=== PATIENT | male | born 1940 | race Caucasian/White ===

== ENCOUNTER 2024-12-13 07:50 | Inpatient (IN) | payer MEDICARE ==
[2024-12-13] MEDS ORDERED: NALOXONE 0.4 MG/ML 1 ML VIAL IV PRN (08:11)
[2024-12-13] MEDS: ASPIRIN 325 MG TAB PO STA (08:12)
[2024-12-13] MEDS: ATORVASTATIN 80 MG TAB PO STA (08:13)
[2024-12-13] MEDS: HEPARIN SODIUM 1,000 UN/ML (10ML VL) MISCELLANE ONE (08:14)
[2024-12-13] MEDS: SODIUM CHLORIDE 0.9% 1,000 ML IV ONE ×2 (08:15→08:26)
--- NOTE | 2024-12-13 08:15 | ED ---
General Adult HPI - General Chief complaint: Chest Pain Stated complaint: Chest pain Time Seen by Provider: 12/13/24 07:52 Source: patient, family, RN notes reviewed, old records reviewed Mode of arrival: ambulatory Limitations: no limitations - History of Present Illness Initial comments: 84-year-old male presenting with intermittent chest pain over the past 2 to 3 days. Pain is substernal, pressure sensation. No vomiting or diaphoresis. No prior history of CAD. Pain became more severe and consistent this morning just prior to arrival and radiated to bilateral upper extremities. - Related Data Allergies Allergy/AdvReac Type Severity Reaction Status Date / Time guaifenesin [From Mucinex] AdvReac Anaphylaxis Verified 12/13/24 08:00 Review of Systems ROS Statement: Those systems with pertinent positive or pertinent negative responses have been documented in the HPI. ROS Other: All systems not noted in ROS Statement are negative. Past Medical History Past Medical History: GERD/Reflux, Hypertension Additional Past Medical History / Comment(s): bladder cancer, kidney failure, Additional Past Surgical History / Comment(s): Urinary stoma, failed neobladder, Past Psychological History: No Psychological Hx Reported Smoking Status: Never smoker Past Alcohol Use History: None Reported Past Drug Use History: None Reported General Exam Limitations: no limitations General appearance: alert, in no apparent distress Head exam: Present: atraumatic, normocephalic Eye exam: Present: normal appearance, PERRL ENT exam: Present: normal exam Neck exam: Present: normal inspection. Absent: tenderness, meningismus Respiratory exam: Present: normal lung sounds bilaterally. Absent: respiratory distress, wheezes Cardiovascular Exam: Present: regular rate, normal rhythm GI/Abdominal exam: Present: soft. Absent: distended, tenderness Extremities exam: Present: normal inspection, normal capillary refill Neurological exam: Present: alert, oriented X3, CN II-XII intact. Absent: motor sensory deficit Psychiatric exam: Present: normal affect, normal mood Skin exam: Present: warm, dry, intact Course Vital Signs 12/13/24 12/13/24 12/13/24 07:54 08:12 08:18 Temperature 97.6 F Pulse Rate 85 94 96 Respiratory 18 18 18 Rate Blood Pressure 172/96 163/93 181/101 O2 Sat by Pulse 98 95 98 Oximetry Medical Decision Making - Medical Decision Making Was pt. sent in by a medical professional or institution (Dr., PA, DIVER ASSISTANT, urgent care, hospital, or snf...) When possible be specific @ -No Did you speak to anyone other than the patient for history (EMS, parent, family, police, friend...)? What history was obtained from this source @ -No Did you review nursing and triage notes (agree or disagree)? Why? @ -I reviewed and agree with nursing and triage notes Were old charts reviewed (outside hosp., previous admission, EMS record, old EKG, old radiological studies, urgent care reports/EKG's, snf records)? Report findings @ -No old charts were reviewed Differential Chest Pain: Stable Angina, Unstable Angina, STEMI, NSTEMI Aortic Dissection, Pneumothorax, Musculoskeletal, Esophageal Spasm GERD, Cholecystitis, Pancreatitis, Zoster, this is not meant to be an all-inclusive list. EKG interpreted by me (3pts min.). @ -Sinus rhythm rate of 84, NJ interval 194, QRS duration 103, QTc 417, ST segment elevation inferior leads with reciprocal changes in lead I and aVL consistent with acute NC X-rays interpreted by me (1pt min.). @ -Chest x-ray is negative for consolidated pneumonia or pneumothorax CT interpreted by me (1pt min.). @ -None done U/S interpreted by me (1pt. min.). @ -None done What testing was considered but not performed or refused? (CT, X-rays, U/S, labs)? Why? @ -None What meds were considered but not given or refused? Why? @ -None Did you discuss the management of the patient with other professionals (professionals i.e. DEBBIE Hernandez, DIVER ASSISTANT, lab, RT, psych nurse, social work supervisor, park ranger, teacher, chairman president and chief executive officer, case monitor)? Give summary @[facility], Dr. Sumner covering for cardiology Was smoking cessation discussed for >3mins.? @ -No Was critical care preformed (if so, how long)? @ -Yes, 35 minutes Were there social determinants of health that impacted care today? How? (Homelessness, low income, unemployed, alcoholism, drug addiction, transportation, low edu. Level, literacy, decrease access to med. care, prison, rehab)? @ -No Was there de-escalation of care discussed even if they declined (Discuss DNR or withdrawal of care, Hospice)? DNR status @ -No What co-morbidities impacted this encounter? (DM, HTN, Smoking, COPD, CAD, Cancer, CVA, ARF, Chemo, Hep., AIDS, mental health diagnosis, sleep apnea, morbid obesity)? @ -None Was patient admitted / discharged? Hospital course, mention meds given and route, prescriptions, significant lab abnormalities, going to OR and other pertinent info. @ -[84-year-old male presenting with central chest pain and pressure which has been present on and off since Friday but became more consistent and severe this morning with radiation to the bilateral upper extremities. No vomiting or diaphoresis. No prior history of CAD. EKG shows ST segment elevation with reciprocal change consistent with acute NC. Wallcovering Texturer is activated and the patient is taken urgently for heart catheterization. Admitted to [facility]. Laboratory testing is pending including CBC, CMP, troponin. Undiagnosed new problem with uncertain prognosis? @ -No Drug Therapy requiring intensive monitoring for toxicity (Heparin, Nitro, Insulin, Cardizem)? @ -No Were any procedures done? @ -No Diagnosis/symptom? @ -Inferior STEMI Acute, or Chronic, or Acute on Chronic? @Acute Uncomplicated (without systemic symptoms) or Complicated (systemic symptoms)? @Complicated Side effects of treatment? @ -No Exacerbation, Progression, or Severe Exacerbation? @ -No Poses a threat to life or bodily function? How? (Chest pain, USA, NC, pneumonia, PE, COPD, DKA, ARF, appy, cholecystitis, CVA, Diverticulitis, Homicidal, Suicidal, threat to staff... and all critical care pts) @ -Yes, ACS - Lab Data Result diagrams: 12/13/24 08:17 12/13/24 08:17 Critical Care Time Critical Care Time: Yes Total Critical Care Time: 35 Disposition Clinical Impression: ST elevation myocardial infarction (STEMI) Disposition: ADMITTED IP TO THIS HOSP Condition: Serious Is patient prescribed a controlled substance at d/c from ED?: No Time of Disposition: 08:14
[2024-12-13 08:26] LABS: Basophils % (A) 0 %; Eosinophils # (A) 0.3 k/uL (0-0.7); Eosinophils % (A) 3 %; HCT 33.5 % (39.0-53.0); HGB 11.2 gm/dL (13.0-17.5); Lymphocytes # (A) 0.9 k/uL (1.0-4.8); Lymphocytes % (A) 12 %; MCH 31.7 pg (25.0-35.0); MCHC 33.5 g/dL (31.0-37.0); MCV 94.7 fL (80.0-100.0); Mean Platelet Volume 7.7; Monocytes # (A) 0.4 k/uL (0-1.0); Monocytes % (A) 6 %; Neutrophils # (A) 5.8 k/uL (1.3-7.7); Neutrophils % (A) 78 %; Platelet Count 192 k/uL (150-450); RBC 3.54 m/uL (4.30-5.90); RDW 13.2 % (11.5-15.5); WBC 7.5 k/uL (3.8-10.6)
[2024-12-13] MEDS: SODIUM CHLORIDE 0.9% 500 ML 500 ML IV ONE (08:26)
--- NOTE | 2024-12-13 08:28 | XR ---
EXAMINATION TYPE: XR chest 1V portable DATE OF EXAM: 12/13/2024 CLINICAL INDICATION: Male, 84 years old with history of STEMI, progress study. TECHNIQUE: Single AP portable upright view of the chest is obtained. COMPARISON: None. FINDINGS: Low lung volumes and cardiomegaly are seen. Reticulonodular increased markings bilaterally . No pleural effusion or pneumothorax seen. Degenerative changes bilateral shoulders is present. Scol iotic curvature is seen. IMPRESSION: Cardiomegaly without acute focal infiltrate. Nonspecific reticulonodular increased markin gs bilaterally noted. Correlation with old outside chest x-rays would be beneficial. [facility], , 12/13/2024 8:26 AM
[2024-12-13] MEDS: fentaNYL (PF) 50 MCG/1 ML VIAL IVP ONE (08:34)
[2024-12-13 08:35] LABS: INR 0.9 (<1.2); Partial Thromboplastin Time 23.8 sec (22.0-30.0)
[2024-12-13] MEDS: LIDOCAINE 1% INJ 10MG/ML (20 ML MDV) SQ ONE (08:35)
[2024-12-13] MEDS: MIDAZOLAM 2 MG/2 ML VIAL IVP ONE (08:35)
[2024-12-13 08:39] LABS: ALT 14 U/L (4-49); AST 34 U/L (17-59); African American GFR (CKD) 9 (>60 ml/min/1.73 sqM); Alkaline Phosphatase 68 U/L (38-126); Anion Gap 16 mmol/L; Blood Urea Nitrogen 69 mg/dL (9-20); Calcium 8.1 mg/dL (8.4-10.2); Carbon Dioxide 18 mmol/L (22-30); Chloride 105 mmol/L (98-107); Glucose 150 mg/dL (74-99); Magnesium 1.8 mg/dL (1.6-2.3); Non-African American GFR(CKD) 8 (>60 ml/min/1.73 sqM); Sodium 139 mmol/L (137-145); Total Bilirubin 0.6 mg/dL (0.2-1.3); Total Protein 6.6 g/dL (6.3-8.2)
[2024-12-13] MEDS: HEPARIN SODIUM,PORCINE (1 ML) 2,500 UNIT in SODIUM CHLORIDE 0.9% 250 ML IRRIGATION ONE (08:41)
[2024-12-13] MEDS: HEPARIN SODIUM,PORCINE 10,000 UNIT in SODIUM CHLORIDE 0.9% 1,000 ML IRRIGATION ONE (08:41)
[2024-12-13 08:47] LABS: NT-Pro-B-Type Natriuretic Pept 14200 pg/mL
[2024-12-13] MEDS: TICAGRELOR 90 MG TAB PO ONE (08:50)
[2024-12-13] MEDS: HEPARIN SODIUM 1,000 UN/ML (10ML VL) IVP ONE (08:52)
[2024-12-13] MEDS: IOPAMIDOL-370 100ML BTL INJ ONE ×2 (09:05→09:47)
--- NOTE | 2024-12-13 09:05 | P.CRDCN ---
History of Present Illness Consult date: 12/13/24 History of present illness: HISTORY OF PRESENTING ILLNESS: Patient with past history of bladder cancer, CKD, presented to [facility] ER this morning because of substernal chest pain radiating bilateral arm along with associated shortness of breath which woke him up from sleep. He has been having on and off substernal chest pressure over the last 2 days. He has been taking [id number] Tylenol which has been helping his symptoms. Because his symptoms are not resolving with Tylenol and were more intense today he decided to come to the ER. On admission he was hemodynamically stable, saturating well on room air Admission ECG showed ST elevations in inferior lead. Patient denies any prior cardiovascular conditions and any prior stenting. He denies any prior history of stroke. REVIEW OF SYSTEMS: 14 point review of system is negative except what is mentioned above in HPI. PHYSICAL EXAMINATION: Neck: Brisk carotid upstroke, no jugular venous distention. Lungs: Clear to auscultation. Heart: Regular rate and rhythm, S1-S2, , no murmur or rub. Abdomen: Soft nontender, positive bowel sounds. Extremities: No edema, intact distal pulses. Neuro: Alert, oritented, no focal deficits. Detailed neuro exam was not performed. ASSESSMENT: # Inferior STEMI # CKD # Bladder cancer PLAN: Plan for emergent cardiac catheterizationroberth nunes Further recommendations to follow Jovon Sumner MD, FACC, RPVI Thank you for allowing [facility] to participate in this patient's care. Feel free to reach out in case of any followup questions. Past Medical History Past Medical History: GERD/Reflux, Hypertension Additional Past Medical History / Comment(s): bladder cancer, kidney failure, Additional Past Surgical History / Comment(s): Urinary stoma, failed neobladder, Past Psychological History: No Psychological Hx Reported Smoking Status: Never smoker Past Alcohol Use History: None Reported Past Drug Use History: None Reported Medications and Allergies Allergies Allergy/AdvReac Type Severity Reaction Status Date / Time guaifenesin [From Mucinex] AdvReac Anaphylaxis Verified 12/13/24 08:00 Physical Exam Vitals: Vital Signs Temp Pulse Resp BP Pulse Ox 12/13/24 08:18 90 18 186/98 100 12/13/24 08:12 86 18 186/98 99 12/13/24 07:54 97.6 F 85 18 172/96 98 Intake and Output 12/12/24 12/13/24 12/13/24 22:59 06:59 14:59 Other: Weight 90.718 kg Results 12/13/24 08:17 12/13/24 08:17 Cardiac Enzymes 12/13/24 12/13/24 Range/Units 08:17 08:17 AST 34 (17-59) U/L Troponin I 6.450 H* (0.000-0.034) ng/mL Coagulation 12/13/24 Range/Units 08:17 PT 10.0 (10.0-12.5) sec APTT 23.8 (22.0-30.0) sec CBC 12/13/24 Range/Units 08:17 WBC 7.5 (3.8-10.6) k/uL RBC 3.54 L (4.30-5.90) m/uL Hgb 11.2 L (13.0-17.5) gm/dL Hct 33.5 L (39.0-53.0) % Plt Count 192 (150-450) k/uL Comprehensive Metabolic Panel 12/13/24 Range/Units 08:17 Sodium 139 (137-145) mmol/L Potassium 4.0 (3.5-5.1) mmol/L Chloride 105 (98-107) mmol/L Carbon Dioxide 18 L (22-30) mmol/L BUN 69 H (9-20) mg/dL Creatinine 6.16 H (0.66-1.25) mg/dL Glucose 150 H (74-99) mg/dL Calcium 8.1 L (8.4-10.2) mg/dL AST 34 (17-59) U/L ALT 14 (4-49) U/L Alkaline Phosphatase 68 (38-126) U/L Total Protein 6.6 (6.3-8.2) g/dL Albumin 4.0 (3.5-5.0) g/dL Current Medications Generic Name Dose Route Start Last Admin Trade Name Freq PRN Reason Stop Dose Admin Naloxone HCl 0.2 mg 12/13/24 08:11 Naloxone 0.4 Mg/Ml 1 Ml Vial IV Q2M PRN Opioid Reversal Intake and Output 12/12/24 12/13/24 12/13/24 22:59 06:59 14:59 Other: Weight 90.718 kg Patient Weight 12/14/24 06:59 Weight 90.718 kg 12/13/24 08:17 12/13/24 08:17
--- NOTE | 2024-12-13 09:12 | P.CARDCATH ---
Date of Procedure: 12/13/24 Description of Procedure: DIAGNOSTIC CORONARY ANGIOGRAPHY and LEFT HEART CATH REPORT PROCEDURES PERFORMED: Left heart catheterization Selective coronary angiography Moderate conscious sedation 14 mins Right radial access INDICATION: Inferior STEMI BRIEF HPI: Patient without any prior cardiovascular history prior history of bladder cancer with neobladder and CKD presented to the ER with substernal chest pressure on admission he was noted to have ST elevations in inferior lead for which he was taken to Teletypewriter Installer. CONSENT: I have explained the procedural steps of above-mentioned procedures in layman's terms to the patient. I discussed the risks (including but not limited to stroke, emergent vascular or cardiac surgery or ), benefits and alternative therapies for the above-mentioned procedure. I discussed the risks of sedation/analgesia and blood product administration (if indicated). The patient has indicated understanding and acceptance of these risks. Conscious Sedation: Patient's ECG, heart rate, blood pressure, pulse oximetry were monitored throughout the duration of procedure under my direct supervision. 1 mg Versed and 50 mcg Fentanyl were used for induction of moderate conscious sedation. Total duration of moderate concious sedation 14 minutes. PROCEDURAL DETAILS: Patient was prepped and draped in sterile fashion. 1% lidocaine was infiltrated over the right radial artery. Right radial access was obtained via modified seldinger technique. . Medications: 5mg of verapamil was administed in the radial sheet. 4000 Units of Heparin was administed in the ER Wires and Catheter used: J wire was advanced under fluroscopy to get to aortic root. 5 slovenian JR 4 diagnostic catheter was utilized obtain left ventricular pressure and pressure gradint across aortic valve. 5 slovenian JR 4 diagnostic catheter was used to selectively engage the right coronary ostium. 5 slovenian JL 3.5 diagnostic catheter was utilized to selectively engage the left coronary ostium. Angiographic images were reviewed in detail. Catheter and wire were removed. Radial sheet was flushed. Decision was to proceed with PCI of RCA with Dr. Combs. Further recommendations to follow TECHNICAL DETAILS Total radiation: 168 mGy Total fluro time: 3.4 minutes Total contrast used: Isovue 50 ml Complications: [none] Estimated Blood loss: less than 15 ml HEMODYNAMICS: LVEDP 22 mmHg. There was no significant gradient across the aortic valve. SELECTIVE CORONARY ARTERIOGRAPHY: LEFT MAIN: The left main is short and large caliber vessel. It bifurcates into the LAD and circumflex. Left main appears angiographically normal. LEFT ANTERIOR DESCENDING CORONARY ARTERY: Distal part of proximal LAD has 70-80% disease. Mid LAD has diffuse 30 to 40% disease. Distal LAD appears angiographically patent. Mid LAD gives rise to a medium size diagonal branch which bifurcates in the proximal segment. Diagonal branch appears angiographically patent. LEFT CIRCUMFLEX CORONARY ARTERY: It is nondominant vessel. LCx is large caliber. Proximal LCx is patent. It gives rise to a large OM1 branch which appears angiographically patent. After giving OM1 branch, mid LCx is angiographically patent and gives rise to a small OM 2 branch. After OM 2 branch, mid LCx continues to become a large caliber OM 3 branch which appears angiographically patent. RIGHT CORONARY ARTERY: Dominant vessel. Distal part of proximal RCA has a 80% eccentric stenosis. Mid RCA has 50 to 60% diffuse disease. Distal portion of mid RCA has 70% stenosis. At the junction of mid and distal RCA, the vessel is 100% occluded with RAKAN 0 flow. There are [id number] collaterals filling medium caliber PDA and PL branches. IMPRESSION: 100% distal mid RCA occlusion with RAKAN 0 flow 80% proximal RCA stenosis 70-80% proximal LAD stenosis Elevated LVEDP PLAN: Plan for emergent PCI of RCA Staged PCI of LAD After the heart cath was performed patient's labs came back which showed a creatinine of 6. Patient does report history of CKD from bladder cancer in the past. Patient will need nephrology consult and multidisciplinary approach for proximal LAD stenosis intervention. Performing Physician Jovon Sumner MD, FACC, RPVI Thank you for allowing [facility] to participate in this patient's care. Feel free to reach out in case of any followup questions.
[2024-12-13] MEDS ORDERED: MAG HYDROX/AL HYDROX/SIMETH 30 ML CUP PO PRN (10:00)
[2024-12-13] MEDS ORDERED: RX INFO: IV CONTRAST WAS GIVEN 1 EACH MISC MISCELLANE PRN (10:00)
[2024-12-13] MEDS ORDERED: NITROGLYCERIN SL TABS 0.4 MG TAB SUBLINGUAL PRN (10:00)
[2024-12-13] MEDS ORDERED: ZOLPIDEM 5 MG TAB PO PRN (10:00)
[2024-12-13] MEDS ORDERED: ATROPINE SULFATE 0.1 MG/ML 10ML SYRINGE IV PRN (10:00)
--- NOTE | 2024-12-13 10:08 | P.CARDCATH ---
Date of Procedure: 12/13/24 Description of Procedure: PERCUTANEOUS TRANSLUMINAL CORONARY ANGIOPLASTY CLINICAL INFORMATION: The patient is an 84-year-old male who presented with symptoms of recurrent chest pain for the last 4 days, worse today, on presentation he was found to have evidence of acute inferior wall myocardial infarction. He underwent cardiac catheterization by Dr. Sumner and was found to have acutely occluded distal RCA with significant disease in the proximal LAD. During the procedure his lab data came back and was consistent with stage IV chronic kidney disease. Recommendations were made regarding angioplasty and stenting. The procedure as well as the risks and the complications were discussed with the patient who was in full understanding and agreement. PROCEDURE: A 6 Congolese AL 0.75 guiding catheter was introduced into the system. After cannulating the RCA, a 0.014 BMW J-wire was advanced across the lesion and positioned distally with the help of a fine cross microcatheter. Following that a 2.5 x 12 mm trek balloon was advanced and inflated at 8 atmosphere. After removing the balloon a RidePost eye IVUS catheter was introduced and images were obtained that revealed a lumen of 5 to 5.3 mm in diameter with mild calcification. Following that a 4.0 x 38 mm Xience delicia point stent was deploy ed. It was dilated at 16 michael. After removing the balloon repeat IVUS imaging was obtained and subsequently a 5.0 x 15 mm NC trek balloon was advanced and inflation in the stented segment were done at 10 michael. After removing the balloon a 5.0 x 23 mm Xience delicia point stent was deployed proximally at 16 michael. Repeat IVUS imaging was obtained and revealed good opening of the stent but imaging showed small irregularity proximal to the stent and a 5.0 x 12 mm Xience delicia point stent was deployed proximal to the first 1 at 16 michael. Repeat IVUS imaging was performed and subsequently a 5.0 x 15 mm NC trek balloon was advanced and inflations in the proximal 2 stents were performed at 10 michael. After the last inflation, after appropriate wait, the balloon and the guidewire were withdrawn back into the guiding catheter. Images were obtained and repeated. Those images reveal stable successful stenting. At that point, the guiding catheter, the balloon, and guidewire were removed. Of note that a guide liner was used to help advance the stent into the distal segment. The sheath was removed. Hemostasis was obtained with deployment of a TR band. There were no immediate complications. The patient was returned to the room in stable condition. Of note, the patient received 8000 units of heparin as well as Brilinta. His ACT was followed. There was no immediate complications. At the end of the procedure his chest pain and EKG changes resolved. RESULTS: Successful stenting of the distal RCA with reduction of stenosis from 100% to less than 5% with stenting of the proximal RCA with reduction of stenosis from 80% to less than 5% with IVUS imaging and RAKAN-3 flow. RECOMMENDATIONS: The patient will continue on aspirin and Brilinta without any interruption for 12 months, close follow-up of his renal function will be done. Depending on his renal status and overall symptoms the decision will be made regarding the need to revascularize his proximal LAD. Aggressive coronary risks modifications, maintaining LDL below 70 mg/dL will be continued. The findings and recommendations were discussed with the patient and the family, they are in full understanding and agreement. Duration of sedation: 60 minutes
[2024-12-13 10:13] LABS: Glucose,Whole Blood 131 mg/dL (70-110)
[2024-12-13] MEDS: hydrALAZINE HCL 25 MG TAB PO SCH (10:48)
[2024-12-13] MEDS: METOPROLOL TARTRATE 25 MG TAB PO SCH (10:48)
[2024-12-13] MEDS: SODIUM CHLORIDE 0.9% 1,000 ML in EMPTY BAG 1 BAG IV SCH (10:49)
--- NOTE | 2024-12-13 13:04 | P.NPCON ---
History of Present Illness - Reason for Consult chronic renal failure - History of Present Illness Patient is an 84-year-old male with history of chronic kidney disease stage V mostly obstructive uropathy who is scheduled to be seen for consultation at our office today. Patient was seeing a warp tying machine knotter in [place]. He has a history of bladder cancer status post cystectomy and neobladder which was eventually removed and currently patient has a urostomy. He presented to the hospital with chest pain and ruled in for acute ST elevation inferior [place]. Status post cardiac catheterization with 3 stents placed in RCA. Patient's serum creatinine has been at 5.5 to 5.9 mg/dL since June 2024. His creatinine this admission is 6 mg/dL. Currently maintained on IV fluids Patient has good urine output No complaints of nausea vomiting or abdominal pain Currently chest pain-free. Patient states that he has no plans on pursuing renal replacement therapy. Past Medical History Past Medical History: GERD/Reflux, Hypertension Additional Past Medical History / Comment(s): bladder cancer, kidney failure, History of Any Multi-Drug Resistant Organisms: None Reported Past Surgical History: Cholecystectomy, Heart Catheterization With Stent Additional Past Surgical History / Comment(s): Urinary stoma, failed neobladder, Date of Last Stent Placement:: 12/13/24 Past Psychological History: No Psychological Hx Reported Smoking Status: Never smoker Past Alcohol Use History: None Reported Past Drug Use History: None Reported Medications and Allergies Home Medications Medication Instructions Recorded Confirmed Type Bumetanide [BUMEX] 0.5 mg PO TID 12/13/24 12/13/24 History Famotidine [Pepcid] 20 mg PO BID 12/13/24 12/13/24 History Allergies Allergy/AdvReac Type Severity Reaction Status Date / Time guaifenesin [From Mucinex] AdvReac Anaphylaxis Verified 12/13/24 11:39 Physical Exam Vitals: Vital Signs Temp Pulse Resp BP Pulse Ox 12/13/24 12:00 75 11 L 133/80 98 12/13/24 11:45 74 21 127/85 98 12/13/24 11:30 73 10 L 146/91 97 12/13/24 11:15 74 12 162/86 12/13/24 11:00 84 11 L 168/89 12/13/24 10:45 77 17 153/80 98 12/13/24 10:30 84 20 153/81 96 12/13/24 10:20 81 22 159/91 97 12/13/24 10:10 98.0 F 79 20 98 12/13/24 08:18 90 18 186/98 100 12/13/24 08:12 86 18 186/98 99 12/13/24 07:54 97.6 F 85 18 172/96 98 Intake and Output 12/12/24 12/13/24 12/13/24 22:59 06:59 14:59 Intake Total 530 Output Total 300 Balance 230 Intake: IV 530 Sodium Chloride 0.9% 1, 360 000 ml In Empty Bag 1 bag @ 1 ML/KG/HR 90.718 mls/ hr IV .[id number] MANUEL Rx#: [id number] Output: Urine 300 Other: # Voids 0 Weight 90.718 kg Patient is awake, comfortable, alert oriented x 3 No acute distress Examination of the heart S1 and S2 Examination of the lungs bilateral breath sounds are heard Abdomen is soft nontender Examination of lower extremities shows no evidence of edema 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 Renal function is at baseline. Patient states that he has no interest in pursuing renal replacement therapy at this time. No acute indication for dialysis currently. 2. Inferior ST elevation [place] status post cardiac catheterization and 3 coronary stent placement in RCA 3. History of bladder cancer status post cystectomy with neobladder formation and eventual removal due to obstructive uropathy. Patient currently has a urostomy. 4. Metabolic acidosis secondary to chronic kidney disease Plan: May continue with IV fluids Add oral sodium bicarb Repeat labs in a.m. Avoid nephrotoxic agents No acute indication for dialysis today. Patient has decided not to pursue renal replacement therapy. Thank you for the consultation. We will continue to follow the patient with you during his hospitalization.
[2024-12-13] MEDS: LACTATED RINGERS 1,000 ML IV SCH (13:24)
--- NOTE | 2024-12-13 14:22 | HP ---
HISTORY AND PHYSICAL CHIEF COMPLAINT: Chest pain. HISTORY OF PRESENT ILLNESS: This 84-year-old gentleman with a past medical history of multiple medical problems including chronic kidney disease, was complaining of chest pain which is intermittent and worsening. The patient was in [place] till recently. Recently moved to [facility]. The patient is noted to have troponin up to 6.450. The patient had inferior ST-segment elevation myocardial infarction. The patient had cardiac catheterization and RCA stenting x3. The creatinine is currently 6.16. Currently, the patient is NO CODE, but however, medical treatment is being continued. There is no history of fever, rigors, chills. Multiple consultants are following the patient. The patient is monitored in ICU at this time. PAST MEDICAL HISTORY: Reviewed and includes chronic kidney disease. Rest of the history and chart were also reviewed. HOME MEDICATIONS: Reviewed and includes Pepcid. Doses and rest of medications reviewed. ALLERGIES: Guaifenesin. FAMILY HISTORY: No history of heart disease or strokes in the family. SOCIAL HISTORY: No history of smoking or alcohol. REVIEW OF SYSTEMS: Fourteen-point review of systems negative except as mentioned earlier. PHYSICAL EXAMINATION: VITAL SIGNS: Pulse 75, blood pressure 133/80, respirations 11. HEENT: Conjunctivae normal. NECK: No JVD. CARDIOVASCULAR: S1 and S2. RESPIRATIONS: Few scattered rhonchi. ABDOMEN: Soft. NERVOUS SYSTEM: Nonfocal. LABORATORY DATA: Reviewed. Creatinine 6.16. ASSESSMENT: 1. Acute ST-segment elevation inferior wall myocardial infarction, status post cardiac catheterization and RCA stenting. 2. 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 3. Hypertension. 4. Gastroesophageal reflux disease. 5. history of bladder cancer. 6. History of CAD stent. 7. History of urinary stoma, failed neobladder. 8. Mild anemia. RECOMMENDATIONS AND DISCUSSION: This 84-year-old gentleman presented with multiple complex medical issues. We will monitor the patient closely. Continue with dual-antiplatelet treatment. Continue with Lipitor. Continue with beta blockers. Continue closely follow with Nephrology. Sodium bicarbonate initiated and follow with Cardiology. Monitor in ICU for now. Repeat labs. I would also recommend UA with micro also to complete the workup. Further recommendations to follow. Chest x-ray showed some cardiomegaly. MMODL / IJN: [id number] /
[2024-12-13 15:06] LABS: Chol/HDL Ratio 4.97 Ratio; LDL Cholesterol,Calculated 98.2 mg/dL (0.0-131.0)
--- NOTE | 2024-12-13 19:08 | CA ---
Transthoracic Echo Report Name: Alex Bradford Age: 84 Gender: M : 1940 Exam Date: 12/13/2024 14:12 Exam Location: [facility] Ht (in): 73 Wt (lb): 200 Ordering Physician: Shanon Combs MD ([id number]) Attending/Referring Phys: Hospital Secretary Ashley Roblero RDCS Procedure CPT: Indications: WA Cardiac Hx: Technical Quality: Fair Contrast 1: Total Dose (mL): Contrast 2: Total Dose (mL): MEASUREMENTS (Male / Female) Normal Values 2D ECHO LV Diastolic Diameter PLAX 4.7 cm 4.2 - 5.9 / 3.9 - 5.3 cm LV Systolic Diameter PLAX 3.4 cm IVS Diastolic Thickness 1.6 cm 0.6 - 1.0 / 0.6 - 0.9 cm LVPW Diastolic Thickness 1.6 cm 0.6 - 1.0 / 0.6 - 0.9 cm LV Relative Wall Thickness 0.7 RV Internal Dim ED PLAX 2.9 cm LA Systolic Diameter LX 4.0 cm 3.0 - 4.0 / 2.7 - 3.8 cm LV Diastolic Volume MOD BP 109.9 cm??? 67 - 155 / 56 - 104 cm??? LV Systolic Volume MOD BP 53.8 cm??? 22 - 58 / 19 - 49 cm??? LV Ejection Fraction MOD BP 51.1 % >= 55 % LV Cardiac Index MOD BP 1886.5 cm???/min???m??? LV Diastolic Volume MOD 4C 97.9 cm??? LV Systolic Volume MOD 4C 62.4 cm??? LV Ejection Fraction MOD 4C 36.3 % LV Cardiac Index MOD 4C 1195.8 cm???/min???m??? LV Diastolic Length 4C 9.0 cm LV Systolic Length 4C 7.9 cm LV Diastolic Volume MOD 2C 99.2 cm??? LV Systolic Volume MOD 2C 52.4 cm??? LV Ejection Fraction MOD 2C 47.2 % LV Cardiac Index MOD 2C 1573.4 cm???/min???m??? LV Diastolic Length 2C 9.0 cm LV Systolic Length 2C 8.1 cm LA Volume 65.4 cm??? 18 - 58 / 22 - 52 cm??? LA Volume Index 30.1 cm???/m??? 16 - 28 cm???/m??? M-MODE Aortic Root Diameter MM 3.8 cm DOPPLER AV Peak Velocity 114.6 cm/s AV Peak Gradient 5.3 mmHg MV Area PHT 1.2 cm??? Mitral E Point Velocity 51.0 cm/s Mitral A Point Velocity 99.5 cm/s Mitral E to A Ratio 0.5 MV Deceleration Time 629.7 ms TR Peak Velocity 133.6 cm/s TR Peak Gradient 7.1 mmHg FINDINGS Left Ventricle Left ventricular ejection fraction is estimated at 35-40 %. Left ventricular cavity size normal. Moderate concentric left ventricular hypertrophy. Inferior wall hypokinesis Right Ventricle Normal right ventricular size. Unable to estimate the right ventricular systolic pressure. Right Atrium Normal right atrial size. No right atrial thrombus or mass seen. Left Atrium Mildly increased left atrial volume. Mildly increased left atrial area. No left atrial thrombus or mass present. Mitral Valve Mitral valve thickened. Mitral annular calcification. Trace to mild mitral regurgitation. Aortic Valve Trileaflet aortic valve. Diffuse thickening (sclerosis) of the aortic valve cusps without reduced excursion. Tricuspid Valve Structurally normal tricuspid valve. No tricuspid stenosis, regurgitation or prolapse. Pulmonic Valve Structurally normal pulmonic valve. Trace pulmonic regurgitation. Pericardium No pericardial effusion. Aorta Mild aortic dilatation at the level of the sinuses of valsalva 38 mm CONCLUSIONS Indication for procedure: ST elevation [place] Reduced LV systolic function ejection fraction of about 40% with inferior wall hypokinesis Previewed by: Dr. Mayo Lindsay MD (Electronically Signed) Final Date: 13 December 2024 19:08
[2024-12-13] MEDS: TICAGRELOR 90 MG TAB PO SCH (21:06)
[2024-12-13] MEDS: ATORVASTATIN 80 MG TAB PO SCH (21:06)
[2024-12-14 06:08] LABS: Basophils % (A) 0 %; Eosinophils # (A) 0.3 k/uL (0-0.7); Eosinophils % (A) 4 %; HCT 30.4 % (39.0-53.0); HGB 9.8 gm/dL (13.0-17.5); Lymphocytes % (A) 15 %; MCH 31.3 pg (25.0-35.0); MCHC 32.3 g/dL (31.0-37.0); MCV 96.9 fL (80.0-100.0); Mean Platelet Volume 7.5; Monocytes # (A) 0.4 k/uL (0-1.0); Monocytes % (A) 6 %; Neutrophils # (A) 4.7 k/uL (1.3-7.7); Neutrophils % (A) 72 %; Platelet Count 191 k/uL (150-450); RBC 3.13 m/uL (4.30-5.90); RDW 13.6 % (11.5-15.5); WBC 6.5 k/uL (3.8-10.6)
[2024-12-14 06:23] LABS: ALT 15 U/L (4-49); AST 39 U/L (17-59); African American GFR (CKD) 9 (>60 ml/min/1.73 sqM); Albumin 3.1 g/dL (3.5-5.0); Alkaline Phosphatase 57 U/L (38-126); Anion Gap 14 mmol/L; Blood Urea Nitrogen 63 mg/dL (9-20); Calcium 7.7 mg/dL (8.4-10.2); Carbon Dioxide 17 mmol/L (22-30); Chloride 107 mmol/L (98-107); Glucose 117 mg/dL (74-99); Non-African American GFR(CKD) 8 (>60 ml/min/1.73 sqM); Potassium 3.9 mmol/L (3.5-5.1); Sodium 138 mmol/L (137-145); Total Bilirubin 0.5 mg/dL (0.2-1.3); Total Protein 5.5 g/dL (6.3-8.2)
[2024-12-14] MEDS: SODIUM BICARBONATE TAB 650 MG TAB PO SCH (09:05)
[2024-12-14] MEDS: ASPIRIN 81 MG PO SCH (09:05)
[2024-12-14 10:32] LABS: HCT 32.7 % (39.0-53.0); HGB 10.6 gm/dL (13.0-17.5); MCH 31.9 pg (25.0-35.0); MCHC 32.3 g/dL (31.0-37.0); MCV 98.6 fL (80.0-100.0); Mean Platelet Volume 7.7; Platelet Count 178 k/uL (150-450); RBC 3.31 m/uL (4.30-5.90); RDW 13.8 % (11.5-15.5); WBC 7.1 k/uL (3.8-10.6)
[2024-12-14 10:54] VITALS: BMI 27.6
--- NOTE | 2024-12-14 11:48 | P.PN ---
Subjective Patient is seen for follow-up for chronic kidney disease. Status post cardiac catheterization and coronary stent placement for acute ST elevation inferior [place]. No significant complaints today. No chest pain. Serum creatinine at 5.7 today. This is his baseline. Patient is maintained on Ringer lactate at 70 cc an hour. Good urine output Objective - Vital Signs Vital signs: Vital Signs Temp 97.9 F 12/14/24 08:00 Pulse 80 12/14/24 11:00 Resp 18 12/14/24 11:00 BP 124/64 12/14/24 11:00 Pulse Ox 96 12/14/24 11:00 FiO2 Intake & Output 12/13/24 12/14/24 12/14/24 18:59 06:59 18:59 Intake Total 970 840 350 Output Total 300 1200 300 Balance 670 -360 50 Weight 90.718 kg 95.1 kg 95.1 kg Intake: IV 970 840 350 Lactated Ringers 1,000 ml 350 840 350 @ 70 mls/hr IV .[id number] [facility] Rx#:[id number] Sodium Chloride 0.9% 1, 450 000 ml In Empty Bag 1 bag @ 1 ML/KG/HR 90.718 mls/ hr IV .[id number] [facility] Rx#: [id number] Output: Urine 300 1200 300 Other: # Voids 0 2 # Bowel Movements 1 - Exam Patient is awake, comfortable, alert oriented x 3 No acute distress Examination of the heart S1 and S2 Examination of the lungs bilateral breath sounds are heard Abdomen is soft nontender Examination of lower extremities shows no evidence of edema ART HANDLER exam grossly intact - Labs CBC & Chem 7: 12/14/24 10:20 12/14/24 05:21 Labs: Abnormal Lab Results - Last 24 Hours (Table) 12/13/24 12/14/24 12/14/24 Range/Units 08:17 05:21 05:21 RBC 3.13 L (4.30-5.90) m/uL Hgb 9.8 L (13.0-17.5) gm/dL Hct 30.4 L (39.0-53.0) % Carbon Dioxide 17 L (22-30) mmol/L BUN 63 H (9-20) mg/dL Creatinine 5.79 H (0.66-1.25) mg/dL Glucose 117 H (74-99) mg/dL Calcium 7.7 L (8.4-10.2) mg/dL Total Protein 5.5 L (6.3-8.2) g/dL Albumin 3.1 L (3.5-5.0) g/dL HDL Cholesterol 32.20 L (40.00-60.00) mg/dL 12/14/24 Range/Units 10:20 RBC 3.31 L (4.30-5.90) m/uL Hgb 10.6 L (13.0-17.5) gm/dL Hct 32.7 L (39.0-53.0) % Carbon Dioxide (22-30) mmol/L BUN (9-20) mg/dL Creatinine (0.66-1.25) mg/dL Glucose (74-99) mg/dL Calcium (8.4-10.2) mg/dL Total Protein (6.3-8.2) g/dL Albumin (3.5-5.0) g/dL HDL Cholesterol (40.00-60.00) mg/dL Assessment and Plan Assessment: 1. 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 Renal function is at baseline. Patient states that he has no interest in pursuing renal replacement therapy at this time. No acute indication for dialysis currently. 2. Inferior ST elevation [place] status post cardiac catheterization and 3 coronary stent placement in RCA 3. History of bladder cancer status post cystectomy with neobladder formation and eventual removal due to obstructive uropathy. Patient currently has a urostomy. 4. Metabolic acidosis secondary to chronic kidney disease Plan: May continue with IV fluids Continue sodium bicarb Repeat labs in a.m. Avoid nephrotoxic agents No acute indication for dialysis today. Patient has decided not to pursue renal replacement therapy.
[2024-12-14 15:13] LABS: Appearance,Urine Turbid (Clear); Bacteria,Urine Moderate /hpf; Bilirubin,Urine Negative (Negative); Blood,Urine Moderate (Negative); Color,Urine Colorless; Glucose,Urine (UA) 2+ (Negative); Ketones,Urine Negative (Negative); Leukocyte Esterase,Urine Large (Negative); Nitrite,Urine Negative (Negative); PH, Urine 5.5 (5.0-8.0); Protein,Urine 2+ (Negative); RBC,Urine 25 /hpf (0-5); Specific Gravity,Urine 1.019 (1.001-1.035); Urobilinogen,Urine <2.0 mg/dL (<2.0); WBC,Urine >182 /hpf (0-5)
--- NOTE | 2024-12-14 17:54 | P.PN ---
Subjective Progress Note Date: 12/14/24 HISTORY OF PRESENTING ILLNESS: Patient with past history of bladder cancer, CKD, presented to [facility] ER this morning because of substernal chest pain radiating bilateral arm along with associated shortness of breath which woke him up from sleep. He has been having on and off substernal chest pressure over the last 2 days. He has been taking [id number] Tylenol which has been helping his symptoms. Because his symptoms are not resolving with Tylenol and were more intense today he decided to come to the ER. On admission he was hemodynamically stable, saturating well on room air Admission ECG showed ST elevations in inferior lead. For this he was taken to the Community Engagement Leader which showed 100% occluded distal mid RCA with 80% proximal RCA stenosis status post PCI. Heart cath also showed 80% mid LAD stenosis. Because of limited diet threshold only PCI to RCA was performed. 12/14/2024 Hb 10.6, BUN 16, creatinine 5.79, GFR is 8, BP 133 over 77 mmHg Good urine output, kidney function is stable Denies any chest pain chest pressure Euvolemic No arrhythmias on telemetry Echo shows an EF of 35 to 40%, moderate concentric LVH, inferior wall hypokinesia, no significant valve dysfunction, mild aortic dilatation of 3.8 cm. PHYSICAL EXAMINATION: Neck: Brisk carotid upstroke, no jugular venous distention. Lungs: Clear to auscultation. Heart: Regular rate and rhythm, S1-S2, , no murmur or rub. Abdomen: Soft nontender, positive bowel sounds. Extremities: No edema, intact distal pulses. Neuro: Alert, oritented, no focal deficits. Detailed neuro exam was not performed. ASSESSMENT: # Inferior STEMI --> heart cath showed 100% RCA stenosis status post PCI to distal and proximal RCA. 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 If blood pressure elevated increasing frequency to 4 times a day Will start Imdur 15 mg for optimization of GDMT. Continue metoprolol 25 mg twice daily Patient is adamant that he does not want hemodialysis. Case was discussed with Dr. Davis. She recommended to wait and see if there is any component of contrast-induced nephropathy in next 24 to 48 hours. She is recommended to be wait for at least 1 week before considering staged PCI of LAD. At this time patient does not have any chest pain chest pressure he is euvolemic and is not in congestive heart failure and does not have any arrhythmias. It is appropriate to wait and see if there is any effect of contrast-induced nephropathy or any worsening kidney function. Okay to transfer to stepdown out of ICU Objective - Vital Signs Vital signs: Vital Signs Temp 98.2 F 12/14/24 16:00 Pulse 76 12/14/24 17:00 Resp 16 12/14/24 17:00 BP 133/77 12/14/24 17:00 Pulse Ox 99 12/14/24 17:00 FiO2 Intake & Output 12/13/24 12/14/24 12/14/24 18:59 06:59 18:59 Intake Total 970 840 770 Output Total 300 1200 700 Balance 670 -360 70 Weight 90.718 kg 95.1 kg 95.1 kg Intake: IV 970 840 770 Lactated Ringers 1,000 ml 350 840 770 @ 70 mls/hr IV .[id number] [facility] Rx#:[id number] Sodium Chloride 0.9% 1, 450 000 ml In Empty Bag 1 bag @ 1 ML/KG/HR 90.718 mls/ hr IV .[id number] [facility] Rx#: [id number] Output: Urine 300 1200 700 Other: # Voids 0 2 # Bowel Movements 1 - Labs CBC & Chem 7: 12/14/24 10:20 12/14/24 05:21 Labs: Abnormal Lab Results - Last 24 Hours (Table) 12/14/24 12/14/24 12/14/24 Range/Units 05:21 05:21 10:20 RBC 3.13 L 3.31 L (4.30-5.90) m/uL Hgb 9.8 L 10.6 L (13.0-17.5) gm/dL Hct 30.4 L 32.7 L (39.0-53.0) % Carbon Dioxide 17 L (22-30) mmol/L BUN 63 H (9-20) mg/dL Creatinine 5.79 H (0.66-1.25) mg/dL Glucose 117 H (74-99) mg/dL Calcium 7.7 L (8.4-10.2) mg/dL Total Protein 5.5 L (6.3-8.2) g/dL Albumin 3.1 L (3.5-5.0) g/dL Urine Protein (Negative) Urine Glucose (UA) (Negative) Urine Blood (Negative) Ur Leukocyte Esterase (Negative) Urine RBC (0-5) /hpf Urine WBC (0-5) /hpf Urine WBC Clumps (None) /hpf Urine Bacteria (None) /hpf 12/14/24 Range/Units 13:45 RBC (4.30-5.90) m/uL Hgb (13.0-17.5) gm/dL Hct (39.0-53.0) % Carbon Dioxide (22-30) mmol/L BUN (9-20) mg/dL Creatinine (0.66-1.25) mg/dL Glucose (74-99) mg/dL Calcium (8.4-10.2) mg/dL Total Protein (6.3-8.2) g/dL Albumin (3.5-5.0) g/dL Urine Protein 2+ H (Negative) Urine Glucose (UA) 2+ H (Negative) Urine Blood Moderate H (Negative) Ur Leukocyte Esterase Large H (Negative) Urine RBC 25 H (0-5) /hpf Urine WBC >182 H (0-5) /hpf Urine WBC Clumps Many H (None) /hpf Urine Bacteria Moderate H (None) /hpf
[2024-12-14] MEDS: ISOSORBIDE MONONITRATE ER 30 MG TAB.ER.24H PO SCH (20:45)
--- NOTE | 2024-12-14 23:10 | PN ---
PROGRESS NOTE DATE OF SERVICE: 12/14/2024 SUBJECTIVE: This is an 84-year-old gentleman who was admitted with acute ST-segment elevation myocardial infarction, underwent cardiac catheterization and stenting also. The creatinine is improved to 5.79 today and the patient apparently had adequate output also. TSH is normal. PAST MEDICAL HISTORY: Reviewed. REVIEW OF SYSTEMS: A 14-point review of systems is negative except as mentioned earlier. CURRENT MEDICATIONS: Reviewed. PHYSICAL EXAMINATION: VITAL SIGNS: Pulse is 73, blood pressure 118/63, respirations 16. CHEST: A few scattered rhonchi and crackles. ABDOMEN: Soft. NERVOUS SYSTEM: Nonfocal. LABORATORY DATA: Creatinine 4.7. ASSESSMENT: 1. Acute ST-segment elevation inferior wall myocardial infarction, status post cardiac catheterization and right coronary artery stenting. 2. 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 3. Hypertension. 4. Gastroesophageal reflux disease. 5. Multiple complex medical issues. RECOMMENDATIONS AND DISCUSSION: Recommend to continue current medications and continue symptomatic treatment. Otherwise, monitor closely. Continue with cautious IV fluids. Repeat labs in the morning. Continue with antiplatelet agents. Continue with beta blockers. Guarded prognosis. Further recommendations to follow. MMODL / IJN: [id number] /
[2024-12-15 10:38] LABS: Basophils % (A) 0 %; Eosinophils # (A) 0.3 k/uL (0-0.7); Eosinophils % (A) 4 %; HCT 29.9 % (39.0-53.0); HGB 9.8 gm/dL (13.0-17.5); Hypochromasia Slight; Lymphocytes # (A) 0.8 k/uL (1.0-4.8); Lymphocytes % (A) 11 %; MCHC 32.8 g/dL (31.0-37.0); MCV 97.6 fL (80.0-100.0); Mean Platelet Volume 7.5; Monocytes # (A) 0.3 k/uL (0-1.0); Monocytes % (A) 5 %; Neutrophils # (A) 5.4 k/uL (1.3-7.7); Neutrophils % (A) 79 %; Platelet Count 186 k/uL (150-450); RBC 3.06 m/uL (4.30-5.90); RDW 13.6 % (11.5-15.5); WBC 6.8 k/uL (3.8-10.6)
[2024-12-15 10:51] LABS: African American GFR (CKD) 10 (>60 ml/min/1.73 sqM); Anion Gap 11 mmol/L; Blood Urea Nitrogen 59 mg/dL (9-20); Calcium 7.7 mg/dL (8.4-10.2); Carbon Dioxide 20 mmol/L (22-30); Chloride 105 mmol/L (98-107); Glucose 210 mg/dL (74-99); Non-African American GFR(CKD) 9 (>60 ml/min/1.73 sqM); Potassium 3.9 mmol/L (3.5-5.1); Sodium 136 mmol/L (137-145)
[2024-12-15 12:22] VITALS: BP 117/64; PULSE 83; RESP 18; TEMP 97.5
--- NOTE | 2024-12-15 12:28 | P.PN ---
Subjective Patient is seen for follow-up for chronic kidney disease. Status post cardiac catheterization and coronary stent placement for acute ST elevation inferior [place] on 12/13/24 No significant complaints today. No chest pain. Serum creatinine at 5.5 today. This is better than baseline. Patient is maintained on Ringer lactate at 70 cc an hour. Good urine output. Discussed with Cardiology that it is preferable to wait for at least a week for the next cardiac catheterization. Objective - Vital Signs Vital signs: Vital Signs Temp 97.9 F 12/15/24 08:00 Pulse 78 12/15/24 08:00 Resp 16 12/15/24 08:00 BP 124/69 12/15/24 08:00 Pulse Ox 96 12/15/24 08:00 FiO2 Intake & Output 12/14/24 12/15/24 12/15/24 18:59 06:59 18:59 Intake Total 910 210 350 Output Total 1075 100 875 Balance -165 110 -525 Weight 95.1 kg 97.2 kg Intake: IV 910 210 350 Lactated Ringers 1,000 ml 910 210 350 @ 70 mls/hr IV .[id number] [facility] Rx#:[id number] Output: Urine 1075 100 875 Other: # Voids 2 - Exam Patient is awake, comfortable, alert oriented x 3 No acute distress Examination of the heart S1 and S2 Examination of the lungs bilateral breath sounds are heard Abdomen is soft nontender Examination of lower extremities shows no evidence of edema ASSISTANT FINANCE MANAGER exam grossly intact - Labs CBC & Chem 7: 12/15/24 09:47 12/15/24 09:47 Labs: Abnormal Lab Results - Last 24 Hours (Table) 12/14/24 12/15/24 12/15/24 Range/Units 13:45 09:47 09:47 RBC 3.06 L (4.30-5.90) m/uL Hgb 9.8 L (13.0-17.5) gm/dL Hct 29.9 L (39.0-53.0) % Lymphocytes # 0.8 L (1.0-4.8) k/uL Sodium 136 L (137-145) mmol/L Carbon Dioxide 20 L (22-30) mmol/L BUN 59 H (9-20) mg/dL Creatinine 5.56 H (0.66-1.25) mg/dL Glucose 210 H (74-99) mg/dL Calcium 7.7 L (8.4-10.2) mg/dL Urine Protein 2+ H (Negative) Urine Glucose (UA) 2+ H (Negative) Urine Blood Moderate H (Negative) Ur Leukocyte Esterase Large H (Negative) Urine RBC 25 H (0-5) /hpf Urine WBC >182 H (0-5) /hpf Urine WBC Clumps Many H (None) /hpf Urine Bacteria Moderate H (None) /hpf Assessment and Plan Assessment: 1. 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 Renal function is at baseline. Patient states that he has no interest in pursuing renal replacement therapy at this time. No acute indication for dialysis currently. 2. Inferior ST elevation [place] status post cardiac catheterization and 3 coronary stent placement in RCA on 12/13/2024 3. History of bladder cancer status post cystectomy with neobladder formation and eventual removal due to obstructive uropathy. Patient currently has a urostomy. 4. Metabolic acidosis secondary to chronic kidney disease Plan: Can DC IV fluids Continue sodium bicarb It is preferable to wait for the next cardiac catheterization for at least another week. Discussed with cardiology yesterday. Avoid nephrotoxic agents No acute indication for dialysis today. Patient has decided not to pursue renal replacement therapy.
--- NOTE | 2024-12-15 14:44 | P.PN ---
Subjective Progress Note Date: 12/15/24 HISTORY OF PRESENTING ILLNESS: Patient with past history of bladder cancer, CKD, presented to [facility] ER this morning because of substernal chest pain radiating bilateral arm along with associated shortness of breath which woke him up from sleep. He has been having on and off substernal chest pressure over the last 2 days. He has been taking [id number]-zjcbjwn Tylenol which has been helping his symptoms. Because his symptoms are not resolving with Tylenol and were more intense today he decided to come to the ER. On admission he was hemodynamically stable, saturating well on room air Admission ECG showed ST elevations in inferior lead. For this he was taken to the Aerial Photographer which showed 100% occluded distal mid RCA with 80% proximal RCA stenosis status post PCI. Heart cath also showed 80% mid LAD stenosis. Because of limited diet threshold only PCI to RCA was performed. 12/14/2024 Hb 10.6, BUN 16, creatinine 5.79, GFR is 8, BP 133 over 77 mmHg Good urine output, kidney function is stable Denies any chest pain chest pressure Euvolemic No arrhythmias on telemetry 12/15/2024 Making urine urostomy Kidney function is at baseline Blood pressure heart rate is at goal, hemoglobin 9.8, tolerating dual antiplatelet therapy with no signs of bleeding. Echo shows an EF of 35 to 40%, moderate concentric LVH, inferior wall hypokinesia, no significant valve dysfunction, mild aortic dilatation of 3.8 cm. PHYSICAL EXAMINATION: Neck: Brisk carotid upstroke, no jugular venous distention. Lungs: Clear to auscultation. Heart: Regular rate and rhythm, S1-S2, , no murmur or rub. Abdomen: Soft nontender, positive bowel sounds. Extremities: No edema, intact distal pulses. Neuro: Alert, oritented, no focal deficits. Detailed neuro exam was not performed. ASSESSMENT: # Inferior STEMI --> heart cath showed 100% RCA stenosis status post PCI to distal and proximal RCA. 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 Continue metoprolol 25 mg twice daily Patient is adamant that he does not want hemodialysis. Case was discussed with Dr. Davis. She recommended to wait and see if there is any component of contrast-induced nephropathy in next 24 to 48 hours. She is recommended to be wait for at least 1 week before considering staged PCI of LAD. At this time patient does not have any chest pain chest pressure he is euvolemic and is not in congestive heart failure and does not have any arrhythmias. It is appropriate to wait and see if there is any effect of contrast-induced nephropathy or any worsening kidney function. Patient is cleared to be discharged from cardiovascular standpoint Follow-up within 1 week in outpatient clinic with Dr. Sumner. Cardiology team will sign off. Objective - Vital Signs Vital signs: Vital Signs Temp 97.5 F L 12/15/24 12:00 Pulse 83 12/15/24 12:00 Resp 18 12/15/24 12:00 BP 117/64 12/15/24 12:00 Pulse Ox 99 12/15/24 12:00 FiO2 Intake & Output 12/14/24 12/15/24 12/15/24 18:59 06:59 18:59 Intake Total 910 210 350 Output Total 1075 100 875 Balance -165 110 -525 Weight 95.1 kg 97.2 kg Intake: IV 910 210 350 Lactated Ringers 1,000 ml 910 210 350 @ 70 mls/hr IV .[id number] [facility] Rx#:[id number] Output: Urine 1075 100 875 Other: # Voids 2 - Labs CBC & Chem 7: 12/15/24 09:47 12/15/24 09:47 Labs: Abnormal Lab Results - Last 24 Hours (Table) 12/14/24 12/15/24 12/15/24 Range/Units 13:45 09:47 09:47 RBC 3.06 L (4.30-5.90) m/uL Hgb 9.8 L (13.0-17.5) gm/dL Hct 29.9 L (39.0-53.0) % Lymphocytes # 0.8 L (1.0-4.8) k/uL Sodium 136 L (137-145) mmol/L Carbon Dioxide 20 L (22-30) mmol/L BUN 59 H (9-20) mg/dL Creatinine 5.56 H (0.66-1.25) mg/dL Glucose 210 H (74-99) mg/dL Calcium 7.7 L (8.4-10.2) mg/dL Urine Protein 2+ H (Negative) Urine Glucose (UA) 2+ H (Negative) Urine Blood Moderate H (Negative) Ur Leukocyte Esterase Large H (Negative) Urine RBC 25 H (0-5) /hpf Urine WBC >182 H (0-5) /hpf Urine WBC Clumps Many H (None) /hpf Urine Bacteria Moderate H (None) /hpf
--- NOTE | 2024-12-17 10:06 | P.DS ---
Providers Date of admission: 12/13/24 08:11 Expected date of discharge: 12/15/24 Attending physician: Jose Gaspar Consults: 12/13/24 08:11 Consult Physician Stat Consulting Provider: Osorio Rajput Consult Reason/Comments: STEMI Do you want consulting provider notified?: Already Contacted 12/13/24 09:04 Consult Physician Routine Consulting Provider: Linnette Davis Consult Reason/Comments: CKD stage 4 s/p Heart cath Do you want consulting provider notified?: Yes 12/13/24 10:00 Consult Physician Routine Consulting Provider: [facility] Consult Reason/Comments: Post Interventional Patient Do you want consulting provider notified?: Already Contacted Primary care physician: Robert Pack MD Hospital Course: Final diagnosis Acute ST segment elevation myocardial infarction, status postcardiac catheterization with right coronary artery stenting 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 Patient will follow-up with Dr. Pack in the outpatient setting upon discharge. Patient is to continue with current medications and close outpatient follow-up with nephrology, cardiology, urology as scheduled. Total time taken is greater than 35 minutes. Hospital course This is a 84-year-old male who was recently admitted with chest pain found to have an acute STEMI status postcardiac catheterization with stenting to the RCA. Patient with significant chronic kidney disease acute on chronic with a creatinine above 6 refusing any type of hemodialysis. Patient evaluated by nephrology being monitored closely on gentle hydration showing improvements in creatinine on discharge trending down at 5.56, BUN is 59. Patient is making urine and has urostomy that is functioning. Patient has been cleared by consultations and would like to go home. Patient to follow-up with cardiology outpatient along with nephrology and urology. Please refer to other consultation notes for further HPI. Currently no reports of chest pain, shortness of breath, or palpitations. Patient is afebrile. No reports of nausea or vomiting and patient is tolerating diet. Patient will be discharged home today. Guarded prognosis given significant comorbidities. Patient expresses that he is no code Physical exam: Gen: This is a 84-year-old male who is awake, alert and oriented x 3, well- developed, elderly appearing HEENT: Head is atraumatic, normocephalic. Pupils equal, round. Sclerae is anicteric. NECK: Supple. No JVD. No lymphadenopathy. No thyromegaly. LUNGS: Diminished breath sounds bilaterally otherwise clear to auscultation. No wheezes or rhonchi. No intercostal retractions. HEART: S1, S2 are muffled ABDOMEN: Soft. Thin. Bowel sounds are present. No masses. No tenderness. EXTREMITIES: No pedal edema. No calf tenderness. NEUROLOGICAL: Patient is awake, alert and oriented x3. Cranial nerves 2 through 12 are grossly intact. Please refer to medication reconciliation sheet for a list of medications. The impression and plan of care has been dictated by Justina Carter, Nurse Practitioner as directed. Dr. Hubert MD I have performed a history and examination and MDM of this patient, discussed the same with the dictator, and agree with the dictator's assessment and plan as written ,documented as a scribe. Based on total visit time, I have performed more than 50% of the visit. Patient Condition at Discharge: Fair Plan - Discharge Summary Discharge Rx Participant: Yes New Discharge Prescriptions: New Aspirin 81 mg PO DAILY 90 Days #90 tab Ticagrelor [Brilinta] 90 mg PO BID 90 Days #180 tab Atorvastatin [Lipitor] 80 mg PO HS 90 Days #90 tab Metoprolol Tartrate [Lopressor] 25 mg PO BID 90 Days #180 tab Sodium Bicarbonate Tab 650 mg PO DAILY #30 tab hydrALAZINE HCL [Apresoline] 25 mg PO BID 90 Days #180 tab Isosorbide Mononitrate ER [Imdur] 15 mg PO DAILY 90 Days #90 tab Continue Famotidine [Pepcid] 20 mg PO BID Discontinued Bumetanide [BUMEX] 0.5 mg PO TID Discharge Medication List Famotidine [Pepcid] 20 mg PO BID 12/13/24 [History] Aspirin 81 mg PO DAILY 90 Days #90 tab 12/15/24 [Rx] Atorvastatin [Lipitor] 80 mg PO HS 90 Days #90 tab 12/15/24 [Rx] Isosorbide Mononitrate ER [Imdur] 15 mg PO DAILY 90 Days #90 tab 12/15/24 [Rx] Metoprolol Tartrate [Lopressor] 25 mg PO BID 90 Days #180 tab 12/15/24 [Rx] Sodium Bicarbonate Tab 650 mg PO DAILY #30 tab 12/15/24 [Rx] Ticagrelor [Brilinta] 90 mg PO BID 90 Days #180 tab 12/15/24 [Rx] hydrALAZINE HCL [Apresoline] 25 mg PO BID 90 Days #180 tab 12/15/24 [Rx] Follow up Appointment(s)/Referral(s): Jovon Sumner MD [Medical Doctor] - 1 Week (Office will call with appointment date and time.) Linnette Davis MD [STAFF PHYSICIAN] - 1 Week (Please call office to make appointment.) Robert Pack MD [Primary Care Provider] - 12/24/24 11:15 am Ambulatory/Diagnostic Orders: Comprehensive Metabolic Panel [LAB.AMB] Time Frame: 3 Days, Location: None Selected Activity/Diet/Wound Care/Special Instructions: Activity limited until follow-up Follow-up with primary care provider on discharge Follow-up with cardiology as discussed in 1 week Follow-up with nephrology early next week Repeat labs in the next 2 to 3 days to monitor kidney functions Continue taking medications as prescribed Monitor urine output and if decreasing contact nephrology and/or primary care provider Discharge Disposition: HOME SELF-CARE Plan of Treatment: Okay to double book appointment with paul [facility]
== END 2024-12-15 16:15 | disposition home or self-care (01) | DRG 322 ==
LOC: EC 07:50 → 2SICU 08:11
PROVIDERS: ADMIT Hospitalist; ATTEND Hospitalist
PROC: B240ZZ3 Ultrasonography of Single Coronary Artery, Intravascular (ICD-10-PCS; 2024-12-13)
PROC: B240ZZ3 Ultrasonography of Single Coronary Artery, Intravascular (ICD-10-PCS; 2024-12-13)
PROC: 027036Z Dilation of Coronary Artery, One Artery with Three Drug-eluting Intraluminal Devices, Percutaneous Approach (ICD-10-PCS; principal; 2024-12-13 10:30)
PROC: 4A023N7 Measurement of Cardiac Sampling and Pressure, Left Heart, Percutaneous Approach (ICD-10-PCS; 2024-12-13 10:30)
PROC: B2111ZZ Fluoroscopy of Multiple Coronary Arteries using Low Osmolar Contrast (ICD-10-PCS; 2024-12-13 10:30)
DX: I21.19 ST elevation (STEMI) myocardial infarction involving other coronary artery of inferior wall (principal); E87.20 Acidosis, unspecified; I12.0 Hypertensive chronic kidney disease with stage 5 chronic kidney disease or end stage renal disease; N18.5 Chronic kidney disease, stage 5; D63.1 Anemia in chronic kidney disease; Z90.6 Acquired absence of other parts of urinary tract; N13.9 Obstructive and reflux uropathy, unspecified; I10 Essential (primary) hypertension; I25.10 Atherosclerotic heart disease of native coronary artery without angina pectoris; Z85.51 Personal history of malignant neoplasm of bladder; K21.9 Gastro-esophageal reflux disease without esophagitis; I25.5 Ischemic cardiomyopathy; I25.2 Old myocardial infarction
CPT/HCPCS: 71045; 80048; 80053; 80061; 81001; 83735; 83880; 84443; 84484; 85025; 85027; 85610; 85730; 87086; 92978; 93005; 93306; 93458; 99291